=== PATIENT | male | born 1990 | race Caucasian/White ===

== ENCOUNTER 2021-03-17 10:09 | Emergency (ER) | payer MEDICAID ==
[~2021-03-17] VITALS: Ht 182.9 cm; Wt 60.5 kg
[2021-03-17] MEDS ORDERED: metoclopramide 5 mg/ml inj IV ONE (11:10)
[2021-03-17] MEDS ORDERED: diphenhydrAMINE 50 mg/ml inj IV ONE (11:10)
[2021-03-17] MEDS ORDERED: normal saline 1000ML IV soln IVB ONE ×2 (11:10)
[2021-03-17] MEDS ORDERED: LORazepam 2 mg/ml vial IV ONE (11:10)
[2021-03-17 11:17] LABS: BASOPHILS % (AUTO) 0.4 % (0-1); EOSINOPHILS % (AUTO) 0.2 % (0-6); HEMATOCRIT 43.8 % (42.0-52.0); HEMOGLOBIN 15.3 g/dl (14.0-17.9); LYMPHOCYTES # (AUTO) 1.5 X10'3 (1.1-4.8); LYMPHOCYTES % (AUTO) 16.8 % (21-51); MEAN CORPUSCULAR HGB CONC 34.9 g/dL (33.0-36.5); MONOCYTES # (AUTO) 0.7 X10'3 (0-0.9); MONOCYTES % (AUTO) 7.6 % (2-12); NEUTROPHILS # (AUTO) 6.8 X10'3 (1.8-7.7); PLATELET COUNT 209 X10'3 (140-440); RED BLOOD COUNT 5.09 X10'6 (4.70-6.10); RED CELL DISTRIBUTION WIDTH 13.4 % (11.5-14.5)
[2021-03-17 11:47] LABS: ALANINE AMINOTRANSFERASE 27 U/L (12-78); ALBUMIN 4.7 G/DL (3.4-5.0); ALBUMIN/GLOBULIN RATIO 1.5 (1.1-1.5); ALKALINE PHOSPHATASE 58 IU/L (46-116); ANION GAP 14 (8-16); ASPARTATE AMINO TRANSFERASE 19 U/L (10-37); BILIRUBIN,TOTAL 1.1 MG/DL (0.1-1.0); BLOOD UREA NITROGEN 13 MG/DL (7-18); BUN/CREATININE RATIO 13.3 (5.4-32.0); CALCIUM 9.3 MG/DL (8.5-10.1); CHLORIDE 101 MMOL/L (99-107); CREATININE 0.98 MG/DL (0.60-1.10); GLUCOSE 116 MG/DL (70-104); POTASSIUM 3.3 MMOL/L (3.5-5.1); SODIUM 138 MMOL/L (135-145); TOTAL CARBON DIOXIDE 23.5 MMOL/L (24-32); TOTAL PROTEIN 7.8 G/DL (6.4-8.2); eGFR 90 ML/MIN
[2021-03-17] MEDS ORDERED: iohexol 300mg/ml 100ml inj. ONE (12:13)
[2021-03-17 12:28] VITALS: BP 141/82
[2021-03-17] MEDS ORDERED: ONDA4TAB12 PO (13:26)
[2021-03-17] MEDS ORDERED: POTA-207 PO (13:26)
[2021-03-17] MEDS ORDERED: ondansetron/PF 4mg/2ml inj IV ONE (13:45)
== END 2021-03-17 13:58 | disposition home or self-care (01) ==
LOC: ER 10:09
DX: R10.31 Right lower quadrant pain (principal); R10.32 Left lower quadrant pain; N50.812 Left testicular pain; R11.2 Nausea with vomiting, unspecified; K59.00 Constipation, unspecified; E87.6 Hypokalemia; E86.0 Dehydration; F12.90 Cannabis use, unspecified, uncomplicated; Z79.899 Other long term (current) drug therapy
CPT/HCPCS: 36415; 74177; 80053; 85025; 96361; 96374; 96375; 99285; J1200; J2060; J2765; J7030; Q9967